=== PATIENT | female | born 1965 | race Caucasian/White ===

== ENCOUNTER → 2021-07-18 | Day surgery (SDC) | payer MEDICARE ==
[~2021-07-18] MED LIST: ATORVASTATIN CA80 MG PO; BACLOFEN10 MG PO; BENTYL 20MG TAB20 MG PO; BUTORPHANO10 MG/1 ML; CALCIPOTRIENE TOP; CLOTRIMAZOLE-745 GM VG; DILTIAZEM ER240 MG PO; FUROSEMIDE40 MG PO; HYDROCODONE-AC1 EACH PO; IBU800 MG PO; INDERAL LA CAP160 MG PO; ISOSORBIDE MONO60 MG PO; KEPPRA 500 MG500 MG PO; METFORMIN HCL500 MG PO; NEURONTIN600 MG PO; PHENERGAN 25 MG25 M1 PO; POTASSIUM CHLO10 MEQ PO; PROTONIX 40 MG40 M1 PO; TOPAMAX200 MG PO; VALIUM 5 MG TAB5 MG PO; ZESTRIL20 MG PO; ZOFRAN 4 MG TAB4 MG PO; [UNRECOGNIZED DRUG - OTHER] PO
== END | disposition home or self-care (01) ==
LOC: OR 06:40
DX: M51.16 Intervertebral disc disorders with radiculopathy, lumbar region (principal); M48.061 Spinal stenosis, lumbar region without neurogenic claudication; Z79.1 Long term (current) use of non-steroidal anti-inflammatories (NSAID); Z79.899 Other long term (current) drug therapy; Z88.5 Allergy status to narcotic agent; Z88.8 Allergy status to other drugs, medicaments and biological substances
CPT/HCPCS: 76000; J1040